=== PATIENT | female | born 1935 | race Caucasian/White ===

== ENCOUNTER 2017-03-13 15:35 | Inpatient (IN) ==
[2017-03-13] MEDS ORDERED: ZOFRAN IV ONE (16:07)
[2017-03-13] MEDS ORDERED: NS 1,000 ML IV ONE (16:07)
[2017-03-13 17:11] LABS: MANUAL DIFF NEEDED? NO
[2017-03-13 17:18] LABS: BASO% 0.7 % (0.0-0.8); EOS# 0.21 X1000 (0.0-0.7); EOS% 4.8 % (0.0-10.0); HEMATOCRIT 38.6 % (37.0-47.0); HEMOGLOBIN 12.5 g/dL (12.0-16.0); LYMPH# 1.33 X1000 (1.2-3.4); LYMPH% 30.4 % (20.5-51.1); MCH 30.9 PG (27-31); MCHC 32.4 g/dL (33-37); MCV 95.3 FL (81-99); MONO# 0.43 X1000 (0.11-0.59); MONO% 9.8 % (1.7-9.3); MPV 12.4 FL (7.4-10.4); NEUT% 54.3 % (42.2-75.2); PLT 247 X1000 (130-400); RBC 4.05 XMIL (4.2-5.4)
--- NOTE | 2017-03-13 17:39 | PROVIDER DOCUMENTATION ---
This chart was entered by Indigo Dukes Scribe, acting as scribe for Miquel Gastelum MD. HPI-Abdominal Pain/GI Problem - General Source: patient - History of Present Illness-ABD Nature of Presenting Problems: Pt is a 81 year old female who came to the ED with a cc of diarrhea and general weakness. Pt reports she has had diarrhea for the past two months and has diarrhea 7-10 times a day. Pt reports she saw her pcp two weeks ago for the diarrhea and he gave her medication, pt reports the medication never worked. Pt reports this morning she fell and defecated on herself. The pt went to see Dr. Reyes and he suggested she do a colonoscopy. Pt went home and fell again and hurt her left knee, head, and back. Pt reports she is weak from having diarrhea for the past two months. Abdominal Pain Onset Location: reports: generalized abdomen Pain Radiation: reports: no radiation Quality of Pain: reports: cramping Onset/Duration: reports: other (two months) Timing: reports: still present Modifying Factors: improves with: nothing Associated Symptoms: reports: diarrhea, weakness Last BM: unsure Dark Stools Present?: reports: none noticed Rectal Bleeding: reports: none Rectal Pain: reports: none Bruising or Bleeding Gums?: No Similar Symptoms Previously?: Yes Recently seen or treated by another doctor?: Yes <Miquel Gastelum - Last Filed: 03/13/17 17:38> - General Source: patient - History of Present Illness-ABD Abdominal Pain Onset Location: reports: generalized abdomen Pain Radiation: reports: no radiation Quality of Pain: reports: cramping Timing: reports: still present Modifying Factors: improves with: nothing Associated Symptoms: reports: diarrhea, weakness Last BM: unsure <Joseph Melgar - Last Filed: 03/13/17 20:19> - General Chief Complaint: Diarrhea Stated Complaint: diarrhea Time Seen by Provider: 03/13/17 15:44 Allergies/Adverse Reactions: Patient Allergies Allergy/AdvReac Type Severity Reaction Status Date / Time oxycodone HCl * AdvReac Severe "MAKES ME Verified 03/13/17 19:12 [From Percocet] CRAZY NERVOUS" promethazine HCl * AdvReac Unknown Verified 03/13/17 19:12 [From Phenergan] Home Medications: Home Medication List Medication Instructions Recorded Confirmed Last Taken Type Aspirin 81 mg PO DAILY 06/02/16 03/06/17 03/06/17 07:00 History Levothyroxine Sodium 75 mcg PO DAILY 06/02/16 03/06/17 03/06/17 07:00 History Primidone [Mysoline] 25 mg PO QHS #0 tablet 06/04/16 03/06/17 03/05/17 20:00 Rx Carisoprodol [Soma] 375 mg PO TID 03/06/17 03/06/17 03/06/17 07:00 History Gabapentin 600 mg PO QHS 03/06/17 03/06/17 03/05/17 20:00 History Gabapentin [Neurontin] 500 mg PO QAM 03/06/17 03/06/17 03/06/17 07:00 History Hydrocodone/Acetaminophen [D[place]inda 1 tab PO BID 03/06/17 03/06/17 03/06/17 07:00 History 10-325 Tablet] Review of Systems - Adult - REVIEW OF SYSTEMS - ADULT Constitutional: denies: chills, fever Eyes: reports: no symptoms reported Ears, Nose, Mouth & Throat: reports: no symptoms reported Cardiovascular: denies: chest pain, irregular heart rate Respiratory: reports: no symptoms reported Gastrointestinal: reports: abdominal pain, diarrhea. denies: nausea, vomiting Genitourinary: denies: dysuria, hematuria Musculoskeletal: reports: bone pain, muscle weakness. denies: joint pain, joint swelling Integumentary: reports: no symptoms reported Neurological: reports: no symptoms reported Psychiatric: reports: no symptoms reported Endocrine: reports: no symptoms reported Hematologic/Lymphatic: reports: no symptoms reported Allergic/Immunologic: reports: no symptoms reported All Other Systems: Reviewed and Negative <Miquel Gastelum - Last Filed: 03/13/17 17:38> - REVIEW OF SYSTEMS - ADULT Constitutional: denies: chills, fever <Joseph Melgar - Last Filed: 03/13/17 20:19> Past History - Adult - PAST MEDICAL HISTORY-ADULT Review of Records: reports: Old Records Reviewed, Nursing Assessment Review Major Childhood Illnesses: reports: denies history Cardiovascular: reports: denies history Respiratory: reports: denies history Gastrointestinal: reports: GERD Obstetrical/Gynecological: reports: denies history Genitourinary: reports: denies history Musculoskeletal: reports: intervertebral disc disease Neurological: reports: denies history Psychiatric: reports: anxiety Endocrine/Immune: reports: cancer (breast), thyroid disorder Other Conditions: reports: denies history - PRIOR SURGERIES/PROCEDURES Surgical/Procedure History: reports: hysterectomy, other (LMRM) - IMMUNIZATION STATUS Childhood Immunizations: See Nurse Assessment Flu Vaccine: See Nurse Assessment - FAMILY HISTORY Family History: reviewed, not pertinent <Miquel Gastelum - Last Filed: 03/13/17 17:38> - PAST MEDICAL HISTORY-ADULT Review of Records: reports: Old Records Reviewed, Nursing Assessment Review <Joseph Melgar - Last Filed: 03/13/17 20:19> Physical Exam-General - PHYSICAL EXAM-ADULT Initial Vital Signs Reviewed: Yes - CONSTITUTIONAL General Appearance: appears well, alert, no apparent distress - EYES Eyes: PERRL/EOMI, pink conjunctivae - HEAD, EARS, NOSE, MOUTH & THROAT HENMT: normocephalic/atraumatic, moist mucous membranes - NECK Neck: non-tender, full range of motion - RESPIRATORY Respiratory: chest non-tender, lungs clear, normal breath sounds - CARDIOVASCULAR Cardiovascular: normal peripheral pulses, regular rate, rhythm - GASTROINTESTINAL (ABDOMEN) Abdominal Exam: normal bowel sounds, tenderness - MUSCULOSKELETAL Back Exam: normal inspection, no CVA tenderness Extremity: normal range of motion, non-tender, normal gait - SKIN Integumentary: normal turgor - NEUROLOGIC Neurologic: grossly normal - PSYCHIATRIC Psych/Mental Status: normal mood/affect, normal thought content, normal thought process, oriented x 3 <Miquel Gastelum - Last Filed: 03/13/17 17:38> - CONSTITUTIONAL General Appearance: appears well, alert, no apparent distress <Joseph Melgar F - Last Filed: 03/13/17 20:19> Progress - PLAN OF CARE/RESULTS Progress/Plan/Lab Results: Vital Signs - 8 hr 03/13/17 15:30 Temperature 97.9 F Pulse Rate 82 Respiratory Rate 18 Blood Pressure 138/61 O2 Sat by Pulse Oximetry 100 Result Diagrams: 03/13/17 16:50 - CHANGE OF SHIFT REPORT (ED Provider) Report Given and Care Transferred to:: Dr. Melgar Time of Transfer: 18:00 Items Pending: Labs, CT/MRI Results, Other (Dispo) <Gastelum,Wenli X - Last Filed: 03/13/17 17:38> - PLAN OF CARE/RESULTS Progress/Plan/Lab Results: Vital Signs - 8 hr 03/13/17 15:30 Temperature 97.9 F Pulse Rate 82 Respiratory Rate 18 Blood Pressure 138/61 O2 Sat by Pulse Oximetry 100 03/13/17 16:51 Stool for WBCs - Final Stool 03/13/17 16:51 Clostridium difficile Toxin Assay - Final Stool 03/13/17 16:51 Clostridium difficile Antigen (BRIAN) - Final Stool Laboratory Results - last 24 hr 03/13/17 03/13/17 03/13/17 16:50 16:50 16:50 WBC 4.38 L RBC 4.05 L Hgb 12.5 Hct 38.6 MCV 95.3 MCH 30.9 MCHC 32.4 L RDW Std Deviation 12.8 Plt Count 247 MPV 12.4 H Immature Gran % (Auto) 0.0 Neut % (Auto) 54.3 Lymph % (Auto) 30.4 [place] % (Auto) 9.8 H Eos % (Auto) 4.8 Baso % (Auto) 0.7 Immature Gran # (Auto) 0.00 Neut # (Auto) 2.38 Lymph # (Auto) 1.33 [place] # (Auto) 0.43 Eos # (Auto) 0.21 Baso # (Auto) 0.03 Sodium 137 Potassium 4.2 Chloride 99 Carbon Dioxide 28 Anion Gap 10 BUN 18 Creatinine 1.1 H Estimated GFR/1.73 m2 48 BUN/Creatinine Ratio 16 Glucose 84 Calculated Osmolality 275 Calcium 8.8 Magnesium 1.9 Total Bilirubin 0.23 AST 13 ALT 9 L Alkaline Phosphatase 46 Creatine Kinase 52 Troponin T Hdr-C-Chkudbdkdyl Pept 443 Total Protein 6.5 Albumin 3.6 Globulin 2.9 Albumin/Globulin Ratio 1.2 Amylase 32 Lipase 13 03/13/17 16:50 WBC RBC Hgb Hct MCV MCH MCHC RDW Std Deviation Plt Count MPV Immature Gran % (Auto) Neut % (Auto) Lymph % (Auto) [place] % (Auto) Eos % (Auto) Baso % (Auto) Immature Gran # (Auto) Neut # (Auto) Lymph # (Auto) [place] # (Auto) Eos # (Auto) Baso # (Auto) Sodium Potassium Chloride Carbon Dioxide Anion Gap BUN Creatinine Estimated GFR/1.73 m2 BUN/Creatinine Ratio Glucose Calculated Osmolality Calcium Magnesium Total Bilirubin AST ALT Alkaline Phosphatase Creatine Kinase Troponin T < 0.010 Elo-W-Eze[place] Pept Total Protein Albumin Globulin Albumin/Globulin Ratio Amylase Lipase Orders Category Date Time Status Saline Loc DIRECTED Care 03/13/17 16:07 Active NPO Diet 03/13/17 16:07 Active CHEST-PORTABLE [RAD] Stat Exams 03/13/17 16:[address] ABD/PELVIS W/ IV CONT ONLY [CT] Stat Exams 03/13/17 17:40 Ordered KNEE 3 VIEWS LEFT [RAD] Stat Exams 03/13/17 19:09 Ordered AMYLASE [CHEM] Stat Lab 03/13/17 16:50 Completed C DIFF ANTIGEN [STOOL] Stat Lab 03/13/17 16:51 Completed C DIFF TOXIN [STOOL] Stat Lab 03/13/17 16:51 Completed CBC WITH ELECTRONIC DIFF [HEME] Stat Lab 03/13/17 16:50 Completed CK PROFILE [SP CHEM] Stat Lab 03/13/17 16:50 Completed COMPREHENSIVE METABOLIC PANEL [CHEM] Stat Lab 03/13/17 16:50 Completed LIPASE [CHEM] Stat Lab 03/13/17 16:50 Completed MAGNESIUM [CHEM] Stat Lab 03/13/17 16:50 Completed PRO B-NATRIURETIC PEPTIDE Stat Lab 03/13/17 16:50 Completed STOOL CULTURE [RM] Routine Lab 03/13/17 16:51 Received TROPONIN T Stat Lab 03/13/17 16:50 Completed URINALYSIS W/POSS RFLX CULT-1 [URINALYSIS] Stat Lab 03/13/17 16:07 Uncollected WBC STOOL [STOOL] Stat Lab 03/13/17 16:51 Completed 0.9% Sodium Chloride Inj [Ns] 1,000 ml Med 03/13/17 16:07 Discontinued IV 999 mls/hr Ondansetron [Zofran] Med 03/13/17 16:07 Discontinued 4 mg IV NOW ONE Result Diagrams: 03/13/17 16:50 03/13/17 16:50 - REASSESSMENT Reassessment #1 Time Reassessed: 19:24 (Patient complained of knee pain and swelling - XR ordered. Stable in no acute distress. ) - CT/MRI 1 CT Study: Abdomen Impression: Abnormal, See EMR Report CT Results: MIld gastroenterocolitis Impression: Abnormal - CONSULTS/PCP/HOSPITALIST Notification #1 *Consult/PCP/Hospitalist*: Dr. Cardenas Time Discussed: 20:18 Consult Disposition: Admit <Joseph Melgar - Last Filed: 03/13/17 20:19> Departure - Departure Date of Disposition Decision: 03/13/17 Certified Medical Emergency: Emergent - Critical Care Note This patient required my direct & personal management of CC.: No <Miquel Gastelum - Last Filed: 03/13/17 17:38> - Departure Date of Disposition Decision: 03/13/17 Time of Disposition Decision: 20:19 Certified Medical Emergency: Emergent - Critical Care Note This patient required my direct & personal management of CC.: No <Joseph Melgar - Last Filed: 03/13/17 20:19> - Departure DIAGNOSIS: Secretory diarrhea Disposition: ADMITTED INPATIENT 09 Condition: Stable Referrals and Follow-Ups: Abrahan Reyes MD [Primary Care Provider] - Attestation - Physician/ SOPHIA Attestation Patient care was provided by Advanced Practice Provider:: No The physician spent face to face time with patient:: Yes Advanced Practice Provider documentation review:: Supervising physician onsite and consulted in the evaluation and care of this patient. The physician did have a face to face encounter with the patient. <Joseph Melgar - Last Filed: 03/13/17 20:19> This chart was documented by the indicated scribe, (Indigo Dukes Scribe) and accurately reflects the services I performed and decisions made by me, Miquel Gastelum MD, as attested by the provider's signature.
[2017-03-13 17:40] LABS: ALBUMIN 3.6 g/dL (3.5-5.0); CALCIUM 8.8 mg/dL (8.8-10.2); MAGNESIUM 1.9 mg/dL (1.5-2.7); POTASSIUM 4.2 mmol/L (3.5-5.1); TOTAL BILIRUBIN 0.23 mg/dL (0.20-1.00); TOTAL PROTEIN 6.5 g/dL (6.3-8.3)
--- NOTE | 2017-03-13 19:01 | Diag Imaging Result Doc PS360 ---
EXAM: CHEST-PORTABLE - 03/13/2017 HISTORY: Cough TECHNIQUE: Portable chest 6:05 PM COMPARISON: 06/02/2016 FINDINGS: Allowing for the AP projection, heart size appears within normal limits. There is mild linear atelectasis or scarring at the left base. There is no consolidation, pleural effusion, or pneumothorax identified. There are mildly prominent anterior costicartilage calcifications noted. IMPRESSION: Mild linear atelectasis or scarring at left base. No other evidence of acute disease. Electronically signed by Jesse Mcgrath 03/13/2017 6:58 PM
--- NOTE | 2017-03-13 19:58 | Diag Imaging Result Doc PS360 ---
EXAM: CT ABD/PELVIS W/ IV CONT ONLY - 03/13/2017 HISTORY: Abd pain with diarrhea TECHNIQUE: With intravenous contrast only per request the referring provider. Dose reduction protocol. COMPARISON: None. FINDINGS: There is slight prominence of central intrahepatic bile ducts. There are no calcified gallstones or pericholecystic inflammation identified. There are small calcified granulomas from old granulomatous disease of the liver and spleen. There are no other substantial abnormalities of the liver, spleen, or adrenal glands identified. The pancreas is mildly atrophic but otherwise unremarkable. There are atherosclerotic vascular calcifications. There are atherosclerotic calcifications plus or minus nonobstructing stones in the right kidney. There is mild right renal cortical scarring. There is no hydronephrosis. There are no substantial enlarged lymph nodes identified. There is no evidence of bowel obstruction. There is mild thickening of the hernandez of stomach, some small bowel, portions of the colon. There is retained fluid in the colon. These findings suggest mild gastroenterocolitis. There is colonic diverticulosis which is most extensive at the sigmoid. There is no discrete diverticulitis identified. There is no free air or abscess identified. There is been previous hysterectomy or partial hysterectomy. There is no abnormal pelvic mass identified. IMPRESSION: Mild gastroenterocolitis. Colonic diverticulosis, most extensive at the sigmoid. No discrete diverticulitis. No abscess. No free air. Nonspecific slight prominence of central intrahepatic bile ducts. No calcified gallstones. No pancreatic mass or inflammation identified. Atherosclerotic calcifications. Atherosclerotic calcifications plus or minus nonobstructing stones in right kidney. No hydronephrosis. Electronically signed by Jesse Mcgrath 03/13/2017 7:55 PM
--- NOTE | 2017-03-13 20:46 | Diag Imaging Result Doc PS360 ---
EXAM: KNEE 3 VIEWS LEFT - 03/13/2017 HISTORY: injury TECHNIQUE: Left knee three views COMPARISON: None FINDINGS: There are mild osteoarthritic changes at the medial tibiofemoral joint, and there is some chondrocalcinosis. There is no fracture or dislocation identified. There are some vascular calcifications noted proximal lower leg. IMPRESSION: No evidence of fracture or dislocation. Electronically signed by Jesse Mcgrath 03/13/2017 8:44 PM
--- NOTE | 2017-03-13 21:47 | HISTORY AND PHYSICAL ---
PRIMARY CARE PHYSICIAN: Dr. Abrahan Reyes. CHIEF COMPLAINT: Diarrhea, weakness and falls. HISTORY OF PRESENTING ILLNESS: A 81-year-old female with a history of breast cancer, hypothyroidism who apparently had presented to emergency department initial complains of having fall but family states that she has been having weakness secondary to having diarrhea for the past 2 months. She states that it was getting more profuse and she was getting weak and subsequently was falling. She was evaluated in the ER. Due to presenting symptoms, it was thought that she would need hospitalization for further management. At time my examination, she had denied any headache, fever, chills, chest pain, shortness of breath, hemoptysis but complained of having diarrhea and not feeling well. PAST MEDICAL HISTORY: Includes breast cancer, hypothyroidism. PAST SURGICAL HISTORY: Left mastectomy, hysterectomy, bilateral carpal tunnel release. ALLERGIES: Oxycodone, promethazine. CURRENT MEDICATIONS: As per medication reconciliation sheet. SOCIAL HISTORY: She is a former smoker. No history of alcohol or illicit drug use. She lives with her daughter. FAMILY HISTORY: No history of coronary disease. REVIEW OF SYSTEMS: [employer] point systems is as in HPI. Other systems negative. PHYSICAL EXAMINATION: GENERAL: Cooperative, friendly female. She is resting comfortably now. VITAL SIGNS: Temperature 97.9 degrees, pulse 82, respiration 18, blood pressure 138/61, she is saturating 100%. HEENT: Atraumatic, normocephalic. Extraocular movements intact. PERRLA. NECK: No masses. CHEST: Clear to auscultation. CARDIOVASCULAR: Regular rate and rhythm. ABDOMEN: Soft. Positive bowel sounds. EXTREMITIES: Left knee tenderness. NEURO: She is awake, alert, oriented x3. : No bladder distention. SKIN: Warm. LABORATORIES AND STUDIES: WBC 4.38, hemoglobin 12.5, hematocrit 38.6, platelets 247,000. Sodium 137, potassium 4.2, chloride 99, CO2 28, BUN is 18, creatinine is 1.1, glucose is 84. Knee x- ray, no evidence of any fracture or dislocation. CT of the abdomen and pelvis shows no some diverticulosis and possible gastroenteritis. ASSESSMENT: 81-year-old female with a history of breast cancer and hypothyroidism had presented to emergency department initially with complaint of having diarrhea for 2 months. She states getting worsening, she was getting weak and had several falls. She was evaluated in the emergency room and due to her presenting symptoms it was thought that would place her for observation for further evaluation management. ASSESSMENT.: 1. Status post falls. 2. Persistent diarrhea. 3. Hypothyroidism . 4. Generalized weakness. PLAN: 1. Will admit patient to medical floor with telemetry. 2. Put patient fall precautions. 3. Will do stool studies, check lactoferrin. 4. Consult Gastroenterology. 5. Will check TSH, T4. 6. Will put patient on DVT prophylaxis with SCD. 7. Will continue to follow and reassess. cc: Fabian Cardenas MD MTDD
[2017-03-14] MEDS ORDERED: NS 1,000 ML IV ONE (00:01)
[2017-03-14] MEDS ORDERED: ZOFRAN IV PRN (00:01)
[2017-03-14 00:53] LABS: URINE CULTURE NEEDED? NO; URINE MICRO REVIEW NEEDED? NO; URINE SOURCE CLEAN CATCH
[2017-03-14 00:55] LABS: BILIRUBIN URINE NEGATIVE (NEGATIVE); BLOOD URINE NEGATIVE (NEGATIVE); COLOR STRAW; GLUCOSE URINE NEGATIVE (NEGATIVE); LEUKOCYTES URINE NEGATIVE (NEGATIVE); NITRITE URINE NEGATIVE (NEGATIVE); PH URINE 6.5; PROTEIN URINE NEGATIVE (NEGATIVE); SP GRAVITY URINE 1.033; TURBIDITY URINE CLEAR (CLEAR); UROBILINOGEN URINE NORMAL (NORMAL)
[2017-03-14 00:57] LABS: UR EPITHELIAL CELLS <10 /HPF (<10); URINE BACTERIA NEGATIVE /HPF; URINE RBC <10 /HPF (<10); URINE WBC <10 /HPF (<10)
[2017-03-14 05:38] LABS: MANUAL DIFF NEEDED? NO
[2017-03-14 05:46] LABS: BASO% 0.6 % (0.0-0.8); EOS# 0.25 X1000 (0.0-0.7); EOS% 6.9 % (0.0-10.0); HEMATOCRIT 37.3 % (37.0-47.0); HEMOGLOBIN 12.1 g/dL (12.0-16.0); LYMPH# 1.16 X1000 (1.2-3.4); MCH 31.1 PG (27-31); MCHC 32.4 g/dL (33-37); MCV 95.9 FL (81-99); MONO# 0.43 X1000 (0.11-0.59); MONO% 11.8 % (1.7-9.3); MPV 12.1 FL (7.4-10.4); NEUT% 48.7 % (42.2-75.2); PLT 227 X1000 (130-400); RBC 3.89 XMIL (4.2-5.4)
[2017-03-14 06:15] LABS: CALCIUM 8.5 mg/dL (8.8-10.2); POTASSIUM 4.7 mmol/L (3.5-5.1)
[2017-03-14] MEDS: SYNTHROID PO SCH (06:47)
--- NOTE | 2017-03-14 09:19 | PROGRESS NOTE ---
DATE: 03/14/2017 SUBJECTIVE: Ms. Dominique has being getting weaker. Family states she has been getting a little more confusion. She had a couple of falls the day of admission. She had fallen and bumped her head. She has had loose stools for a couple of weeks. She is sitting up on the side of bed. She wants to know when she can go home. OBJECTIVE: Vital Signs: Temperature 98.4 degrees, pulse 59, respirations 12, blood pressure 132/52. Lungs are clear in all lung ahumada. Cardiovascular: Regular rhythm and rate without murmur or S3. Abdomen soft. Skin is warm and dry. I reviewed her lab from yesterday. White count 3630, hematocrit 37, platelet count 227,000. Sodium 144, potassium 4.7, chloride 104, bicarb 29. BUN 12, creatinine 1.0. Liver function tests unremarkable. Urinalysis unremarkable. Knee x-ray yesterday: No evidence of fracture or dislocation. Chest x-ray: Mild linear atelectasis. Scarring in the left base. No other evidence of acute disease. Abdominal pelvic CT: Slight prominence of central intrahepatic bile ducts. No calcified gallstones. No pancreatic mass or inflammation identified. Mild gastroenterocolitis, colonic diverticulosis most extensive in the sigmoid. No discrete diverticulitis. ASSESSMENT AND PLAN: 1. Enterocolitis, nonspecific. Dr. Rutherford is her doctor. I think he is hoping for a colonoscopy. She has a distant history of breast cancer. History of hypothyroidism. 2. Persistent diarrhea, suspect related to colitis. I do not know of any history of recent antibiotics. Stool cultures, I think, are pending. 3. Hypothyroidism. 4. General weakness. 5. Some confusion which is a little more prominent, and she may have some cognitive decline. HOME MEDICATIONS: Looking at her home medications, she was taking 1. Xanax 0.5 mg t.i.d. 2. Aspirin 81 mg a day. 3. Soma 375 mg t.i.d. 4. Vitamin D3, 6000 units every morning. 5. Vitamin B12, 2500 mcg q.a.m. 6. Lomotil 1-2 q.6 hours. 7. Gabapentin 600 mg at bedtime. 8. Neurontin 500 mg q.a.m. 9. [place] 10/325 t.i.d. 10. Iron 65 mg p.o. q.a.m. 11. Levothyroxine 75 mcg q.a.m. 12. Mysoline 25 mg at bedtime. I do think we may need to taper off some of these medications to see if this will help her cognitive status. cc: En Womack MD
[2017-03-14] MEDS ORDERED: GOLYTELY PO ONE (14:00)
--- NOTE | 2017-03-14 15:43 | CONSULTATION ---
DATE OF CONSULTATION: 03/14/2017 REASON FOR REFERRAL: Weakness, falls, diarrhea. HISTORY OF PRESENT ILLNESS: This is a 81-year-old, white female, who reports increasing weakness over the last month. She has also had diarrhea over the last 1-2 months. She has been having falls at home. She had recently went to see Dr. Reyes yesterday. She went home after the appointment. She states after she got home, she fell and hit her head and back. She called Dr. Reyes and was told to come to the emergency room for further evaluation. Her [id number] is with her today. She states she has had progressive weakness. She has had diarrhea and accidents. Patient reports abdominal cramping and urgency. She denies any recent antibiotic use. The [id number] does report some episodes of confusion. She has noticed some black stools. Denies NSAID use. Patient does not think she has ever had an EGD or colonoscopy. She states she has never seen a GI doctor before. PAST HISTORY: Breast cancer, hypothyroidism, chronic back pain. PAST SURGICAL HISTORY: Left mastectomy, hysterectomy, bilateral carpal tunnel surgery. ALLERGIES: Oxycodone causes nervousness and agitation. Phenergan: Unknown reaction. HOME MEDICATIONS: 1. Primidone 25 mg every night. 2. Gabapentin 600 mg every night. 3. Levothyroxine 75 mcg daily. 4. Iron 65 mg daily. 5. [place] 10/325 three times a day. 6. Neurontin 500 mg daily. 7. Lomotil 1-2 as needed. 8. Vitamin B 12 daily. 9. Vitamin D 3 daily. 10. Soma 375 mg 3 times a day. 11. Aspirin 81 mg daily. 12. Xanax 0.5 mg 3 times a day. SOCIAL HISTORY: She quit tobacco use 12 years ago. Denies alcohol use. She lives with her daughter. REVIEW OF SYSTEMS: Per HPI. PHYSICAL EXAMINATION: Vital Signs: Temperature 98.4 degrees, pulse 59, respirations 12, blood pressure 132/52. General: Patient is awake and alert in no acute distress. She is sitting on the side of the bed. HEENT: Normocephalic, atraumatic. Pupils equal, round, reactive to light. Sclerae nonicteric. Respiratory: Lung sounds clear bilaterally. Cardiovascular: Regular rate and rhythm. Abdomen: Soft. Positive bowel sounds. Extremities: She has some left knee tenderness from her recent fall. DIAGNOSTIC RESULTS: Laboratory: Hematology: White count 3.63. Hemoglobin 12.1, hematocrit 37.3, MCV 95.9, platelets 227,000. Chemistry: Sodium 144, potassium 4.7, chloride 104, CO2 of 29. BUN 12, creatinine 1.0, glucose 82. Calcium 8.5, total bilirubin 0.23. AST 13, ALT 9. Alkaline phosphatase 46. Amylase 32, lipase 13. Urinalysis was negative. ASSESSMENT AND PLAN: 1. Weakness. 2. Fatigue. 3. Recent falls. 4. Melena. 5. Diarrhea. PLAN: Continue symptomatic treatment and supportive care. Stool studies including C. difficile toxin were negative. We will proceed with an EGD and colonoscopy tomorrow. Further plans will be made according to findings. I have discussed the procedures to the patient and family along with benefits and risk, and they wish to proceed. I have discussed this case with Dr. Mcdonough. Thank you for this consultation. Dictated by NOEMY Ramirez for Axel Mcdonough MD cc: NOEMY Daniels MD [facility]
[2017-03-14] MEDS: MYSOLINE PO SCH (21:38)
[2017-03-15] MEDS: SYNTHROID PO SCH ×2 (05:56→07:33)
--- NOTE | 2017-03-15 09:27 | PROGRESS NOTE ---
DATE: 03/15/2017 SUBJECTIVE: Ms. Dominique states she still got loose stools, but she is feeling better overall. She does complain of a headache. OBJECTIVE: Vital Signs: Remain afebrile. Temperature 98.3 degrees, pulse 96, respirations 16, blood pressure 149/63. Lungs: Clear in all lung ahumada. Cardiovascular exam: Regular rhythm and rate without murmur or S3. Abdomen: Soft. Skin: Warm and dry. LAB: Reviewed on the thirtieth. White count 3630, hematocrit 37, platelet count 227,000. Sodium 144, potassium 4.7, chloride 104, bicarbonate 29, BUN 12, creatinine 1.0. ASSESSMENT AND PLAN: Weakness, fatigue, recent falls, melena and diarrhea. Stool studies including Clostridium difficile were negative. I think we are going to proceed with an esophagogastroduodenoscopy and colonoscopy. She still has loose stools, but feels better overall. I have reviewed the lab and have reviewed orders. I do not see any change at this point. History of hypothyroidism on levothyroxine, getting normal saline at 80 mL an hour, and has been prepped for colonoscopy. cc: En Womack MD
[2017-03-15] MEDS ORDERED: DIPRIVAN 1% ONE ×3 (12:05→12:38)
[2017-03-15] MEDS: TYLENOL PO PRN (13:41)
--- NOTE | 2017-03-15 20:55 | OPERATIVE NOTE ---
PROCEDURE DATE: 03/15/2017 PROCEDURES: 1. Esophagogastroduodenoscopy. 2. Colonoscopy. 3. Biopsy. PREOP DIAGNOSES: 1. Diarrhea. 2. Melena. 3. Abnormal CT findings. POSTOP DIAGNOSES: 1. Erosive gastritis. 2. Diverticulosis coli. DESCRIPTION OF PROCEDURE: Informed consent obtained from the patient. Procedure risks, benefits, alternatives were explained in layman's terms. She understood. All the pertinent questions answered. The patient was brought to the endoscopy unit and was premedicated as per Anesthesia. After adequate sedation, while she was lying in left lateral position the gastroscope was introduced into the posterior pharynx and advanced under direct vision into the esophagus. Esophagus in the upper and middle part was normal. Distal esophagus showed 2 cm long salmon- colored mucosa suggestive of Harvey's esophagus. However there was no evidence of esophagitis, esophageal ring, or esophageal varices. The scope was passed through the esophagus into the stomach. Stomach was examined in both straight and retroflexed view. This revealed normal cardia, fundus and body, but in the antrum there were spots of erosions seen, mild, and no stigmata of recent bleed suggestive of mild erosive gastritis, and again no evidence of active bleeding or stigmata of recent bleed seen. There was no evidence of ulcer, tumor or masses seen. Scope was then passed through the pylorus into the duodenal bulb, and then 2nd part of duodenum. Both appeared normal. The scope was then removed. Patient tolerated the procedure well. Patient was then repositioned for colonoscopy. Digital rectal exam was performed, which was normal. Scope was then gently introduced into the rectum and advanced under direct vision through the parts of colon, all the way up to the cecum. The cecum was identified by ileocecal valve and appendiceal orifice. The scope was then passed through the normal ileocecal valve into terminal ileum. About 1-2 cm terminal ileum was examined, this was normal. The scope was withdrawn back into the cecum, back through the parts of colon, all the way up to the rectum paying careful attention to details. Preparation was good. The visualized portion of the colon revealed significant diverticulosis in the sigmoid colon without any evidence of diverticulitis or diverticular bleeding. No other tumor masses were seen. Biopsy from the random biopsies were taken from the colon to check for microscopic colitis. Retroflexed view of rectum revealed no pathology. The scope was then removed. Patient tolerated the procedure. No complications were noted. Patient was then transferred to the recovery area in a stable condition. IMPRESSION: Mild erosive gastritis, diverticulosis, otherwise normal colon. RECOMMENDATION: I will start her on low dose proton pump inhibitor Prilosec 20 mg p.o. every day. Recommend to avoid NSAIDs if possible. Continue current treatment. Start her with clear liquid diet and advance diet as tolerated. Follow up the biopsy report, if microscopic colitis is seen we will treat accordingly. I will see her back in the office after discharge. cc: Axel Mcdonough MD MTDD
[2017-03-15] MEDS: MYSOLINE PO SCH (22:26)
[2017-03-16] MEDS ORDERED: PRILOSEC PO SCH (07:00)
[2017-03-16] MEDS: TYLENOL PO PRN (08:18)
[2017-03-16] MEDS: SYNTHROID PO SCH (09:16)
[2017-03-16 14:19] VITALS: BP 168/75
--- NOTE | 2017-03-16 17:26 | DISCHARGE SUMMARY ---
ADMISSION DATE: 03/13/2017 DISCHARGE DATE: 03/16/2017 HISTORY OF PRESENT ILLNESS: A 81-year-old who presented with diarrhea, weakness, and falls, and a history of breast cancer, history of hypothyroidism. Presented to the emergency room with complaints of having a fall but also increased weakness and concerned about her level diarrhea for 2 months. Diarrhea was getting more profuse and she seemed to be getting weaker and seemed to have more confusion and so they came to the hospital. Denied any headache, fever, chest pain, shortness of breath. PAST MEDICAL HISTORY: Breast cancer, hypothyroidism. PAST SURGICAL HISTORY: Left mastectomy, hysterectomy, bilateral carpal tunnel release. ALLERGIES: Oxycodone and promethazine. HOSPITAL COURSE: So she was admitted because she had frequent falls. She has a history of breast cancer, history of hypothyroidism and suspect underlying dementia which she has had for a while and the diarrhea for 2 months with a history of hypothyroidism. Dr. Mcdonough was consulted. He felt like stool studies were obtained and were unremarkable. EGD and colonoscopy were planned and this was done on 03/15/2017 and found erosive gastritis and diverticulosis. He thought she should stay on low dose proton pump 20 mg p.o. every day and avoid nonsteroidals and advance her diet. Family is concerned that still confusion and confusion seems to be worse in the hospital but I did explain to them it usually is worse in the hospital. Her microbiology stool for white blood cells were 19. Stool culture for Salmonella, Shigella, Campylobacter, E coli was negative. No enteric pathogens found. [place] she could go home. DISCHARGE MEDICATIONS: She will take her Synthroid 75 mcg a day, Prilosec 20 mg daily, Mysoline 25 mg at bedtime. We will keep her off her Xanax and keep her off her aspirin and stop her Soma, vitamin D3, and gabapentin and hydrocodone. Continue levothyroxine 75 mg and her Mysoline. Follow up with her primary care. I believe that is Dr. Abrahan Reyes. cc: En Womack MD
== END 2017-03-16 18:26 | disposition home or self-care (01) ==
LOC: ED 15:35 → 4N 15:35 → OBSVTOIN 23:40 → SUATTDRO 23:40
PROVIDERS: ATTEND Emergency Medicine